=== PATIENT | female | born 1970 | race Caucasian/White ===

== ENCOUNTER 2022-08-28 14:46 | Outpatient (OUT) | payer BC, SELFPAY ==
[2022-08-28 15:15] LABS: Basophils Percent Auto 0.3 % (0.2-2.0); Eosinophils Absolute Auto 0.2 10^3/uL (0.0-0.7); Eosinophils Percent Auto 1.7 % (0.9-7.0); Hematocrit 39.5 % (36.0-48.0); Hemoglobin 13.3 g/dL (12.0-16.0); Immature Granulocytes Abs Auto 0.05 10^3/uL (0.00-0.03); Immature Granulocytes Pct Auto 0.4 % (0.0-0.5); Lymphocytes Absolute Auto 2.8 10^3/uL (1.2-3.8); Lymphocytes Percent Auto 24.3 % (20.5-60.0); Mean Corpuscular HGB Conc 33.7 g/dL (29.9-35.2); Mean Corpuscular Hemoglobin 29.7 pg (26.7-34.0); Mean Corpuscular Volume 88.2 fL (81.0-99.0); Mean Platelet Volume 9.7 fL (9.5-13.5); Monocytes Absolute Auto 0.6 10^3/uL (0.3-0.8); Monocytes Percent Auto 4.9 % (1.7-12.0); Neutrophils Absolute Auto 7.8 10^3/uL (1.4-6.5); Neutrophils Percent Auto 68.4 % (43.0-75.0); Platelet Count 198 10^3/uL (150-450); Red Blood Count 4.48 10^6/uL (4.20-5.40); Red Cell Distribution Width 12.4 % (11.0-15.0); White Blood Count 11.4 10^3/uL (4.0-11.0)
[2022-08-28 15:47] LABS: Estimated Average Glucose 103 mg/dL; Glycohemoglobin A1C 5.2 % (4.5-6.2)
[2022-08-29 14:02] LABS: Anion Gap 13.8; Carbon Dioxide 24.3 mmol/L (21.0-32.0); Chloride 104 mmol/L (98-107); Potassium 4.1 mmol/L (3.5-5.1); Sodium 138 mmol/L (136-145)
[2022-08-29 14:03] LABS: Alanine Aminotransferase 20 U/L (14-59); Albumin Globulin Ratio 1.1; Albumin Level 3.7 g/dL (3.4-5.0); Alkaline Phosphatase 81 U/L (46-116); Aspartate Amino Transferase 10 U/L (15-37); BUN Creatinine Ratio 12.6; Bilirubin Total 0.3 mg/dL (0.2-1.0); Calcium 8.7 mg/dL (8.5-10.1); Chol HDL Ratio 3.7; Cholesterol 181 mg/dL (<=200); Estimated GFR (African America >60 (>=60); Estimated GFR (Non-African Ame >60 (>=60); Globulin 3.4 g/dL; Glucose 89 mg/dL (74-106); HDL Cholesterol 49 mg/dL (40-60); Total Protein 7.1 g/dL (6.4-8.2); Triglycerides 120 mg/dL (<=150)
[2022-08-29 14:04] LABS: Thyroid Stimulating Hormone 1.686 uIU/mL (0.358-3.740)
== END 2022-08-28 14:47 | disposition home or self-care (01) ==
LOC: LAB 14:46
PROVIDERS: PCP Family Medicine; Visit Provider Family Medicine
DX: Z00.00 Encounter for general adult medical examination without abnormal findings (principal)
CPT/HCPCS: 36415; 80053; 80061; 83036; 84443; 85025

== ENCOUNTER 2024-10-10 08:05 | Outpatient (OUT) | payer BC, SELFPAY ==
--- NOTE | 2024-10-10 08:08 | MM_ITS ---
Patient Name: URI DE DIOS MR#: [id number] : 1970 Exam Date: 10/10/2024 Ordering Doctor: DR LAWSON CUEVAS . RADIOLOGY REPORT PROCEDURE: MM TOMOSYNTHESIS SCREENING BI COMPARISON: MG MAMM DIAGNOSTIC 3D PEPPER CAD, 07/07/2021. MG MAMM PEPPER SCRN W CAD DIG, 12/21/2007. INDICATIONS: Screening Calculator Name NCI Breast Cancer Risk Assessment Tool 5 Year Breast Cancer Risk 0.70% Lifetime Breast Cancer Risk 5.80% Personal Breast Cancer No Personal Ovarian Cancer No Treatments None Family Cancers Aunt-paternal with breast cancer at age ~48; Aunt-paternal with breast cancer at age ~48. LOCATION: [facility] BREAST COMPOSITION: The breasts are heterogeneously dense, which may obscure small masses. FINDINGS: DIAGNOSTIC CATEGORY 1--NEGATIVE. RIGHT BREAST: No significant suspicious finding. LEFT BREAST: No significant suspicious finding. RECOMMENDATIONS: ROUTINE MAMMOGRAM AND CLINICAL EVALUATION IN 12 MONTHS. PLEASE NOTE: A NORMAL MAMMOGRAM DOES NOT EXCLUDE THE POSSIBILITY OF BREAST CANCER. A CLINICALLY SUSPICIOUS PALPABLE LUMP SHOULD BE BIOPSIED. Dictated by: Chris Nascimento DO on 10/10/2024 at 12:04 Approved by: Chris Nascimento DO on 10/10/2024 at 12:06
== END 2024-10-10 08:06 | disposition home or self-care (01) ==
LOC: MAMMO 08:05
PROVIDERS: PCP Family Medicine; Visit Provider Family Medicine
DX: Z12.31 Encounter for screening mammogram for malignant neoplasm of breast (principal); Z80.3 Family history of malignant neoplasm of breast
CPT/HCPCS: 77063; 77067

== ENCOUNTER 2024-11-19 20:29 | Outpatient (REF) | payer BC, SELFPAY ==
--- OUTSIDE RECORDS SUMMARY | 2024-11-05 10:45 | XMS_ITS | Encounter Summary ---
[id number] [address] [place] [address] Care Team Providers Care National Coverage Specialist Name Role Phone Jose Alfredo Reyes MD Primary Care Provider [phone] Reason for Visit * Reason Comments Other Breast cyst of Left breast, referred by Dr. Vincent, US done at [facility] 10/23/24 Encounter Details Date Type Department Care Team (Late st Contact Info) Description 11/05/2024 10:45 AM EDT Office Visit [facility] [address] [place], [place] [id number] Francisco J Flores, DO [address] [place] [address] Mass of upper outer quadrant of left breast (Primary Dx); Abnormal ultrasound of breast Social History Tobacco Use Types Packs/Day Years Used Date Smoking Tobacco: Every Day Cigarettes Smokeless Tobacco: Never Tobacco Cessation:Ready to Q uit: Not Asked; Counseling Given: Not Answered Alcohol Use Standard Drinks/Week Comments Yes 0 (1 standard drink = 0.6 oz pur e alcohol) social Childcare Answer Date Recorded Childcare Unknown 08/14/2018 Employment Answer Date Recorded Employment Unknown 08/14/2018 Comments Unknown Sex and Gender Information Value Date Recorded Sex Assigned at Not on file Legal Sex Female 11:37 AM EDT Gender Identity Not on file Sexual Orientation Not on file documented as of this encounter Last Filed Vital Signs Vital Sign Reading Time Taken Comments Blood Pressure 134/87 11/05/2024 10:56 AM EDT Pulse 74 11/05/2024 10:56 AM EDT Temperature - - Respiratory Rate - - Oxygen Saturation - - Inhaled Oxygen Concentration - - Weight 51.7 kg (114 lb) 11/05/2024 10:56 AM EDT Height 162.6 cm (5' 4 ) 11/05/2024 10:56 AM EDT Body Mass Index 19.57 11/05/2024 10:56 AM EDT documented in this encounter Progress Notes * Francisco J Flores, DO - 11/05/2024 10:45 AM EDT Images from the original note were not included. [facility] [address] [facility] [id number] CONSULT NOTE CHIEF COMPLAINT Chief Complaint Patient presents with Other Breast cyst of Left breast, referred by Dr. Vincent, US done at [facility] 10/23/24 Tawnya Calixto is a 54 y.o. female who presents with an abnormal cyst of the left breast. [facility] showing a 1.4 x 1.3 x 1.5 cm cyst with internal debris he is slightly smaller when compared to prior examination has well-circumscribed margins and there is mild posterior acoustic enhancement. It was read as a BI-RADS 3 and they recommended repeat follow up six-month ultrasound of the left breast to assess stability. She has had a palpable mass which is tender for a least 5 months. She stated that the radiologist at [facility] did not want to biopsy this by ultrasound and she wishes to have it removed because it is uncomfortable and painful at times. She was age 19 with the onset of menarche. Last menses was at the time of her hysterectomy many years ago. She is 7 para 3. She was age 21 with her 1st born child. Denies any hormone replacement therapy nipple discharge or any family history of breast cancer. There is precancerous in her mother's side and her great grandmother and on her dad's side had breast cancer. She does perform routine breast self examinations. 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 She had a recent diagnostic mammogram performed at the [employer] on 10/10/2024 which was read as BI-RADS 1 and showed the both breasts were heterogenous really dense which can obscure small masses. Patient is uncomfortable with this and wants to have a biopsy. MEDICATION Current Outpatient Medications: ALPRAZolam (XANAX) 0.5 mg tablet, Take 1 tablet (0.5 mg total) by mouth Three times daily as needed., Disp: , Rfl: omeprazole (PriLOSEC) 40 mg capsule, Take 1 capsule (40 mg total) by mouth., Disp: , Rfl: ondansetron ODT (ZOFRAN ODT) 8 mg disintegrating tablet, Dissolve 1 tablet (8 mg total) on tongue every 8 (eight) hours as needed., Disp: , Rfl: citalopram (CeleXA) 20 mg tablet, Take 1 tablet (20 mg total) by mouth in the morning., Disp: , Rfl: ALLERGY Allergies Allergen Reactions Food Allergy Formula Anaphylaxis Blue Cheese Penicillins Anaphylaxis Morphine Hallucinations Other Reaction(s): depression MEDICAL HISTORY Past Medical History: Diagnosis Date Anxiety Depression SURGICAL HISTORY History reviewed. No pertinent surgical history. SOCIAL HISTORY Social History Socioeconomic History Marital status: Significant Other Spouse name: Not on file Number of children: Not on file Years of education: Not on file Highest education level: Not on file Occupational History Not on file Tobacco Use Smoking status: Every Day Current packs/day: 0.50 Types: Cigarettes Smokeless tobacco: Never Substance and Sexual Activity Alcohol use: Yes Comment: social Drug use: Never Sexual activity: Defer Other Topics Concern Not on file Social History Narrative Not on file Social Drivers of Health Financial Resource Strain: Not on file Food Insecurity: Not on file Transportation Needs: Not on file Physical Activity: Not on file Stress: Not on file Social Connections: Not on file Interpersonal Safety: Not on file Housing Instability: Not on file FAMILY HISTORY History reviewed. No pertinent family history. REVIEW OF SYSTEMS: Constitutional: Denies fevers, denies recent illnesses. Rest review of systems negative except as above. PHYSICAL EXAM Constitutional: She is oriented to person, place, and time. Vital signs are normal. She appears well-developed and well-nourished. HEENT: Head: Normocephalic and atraumatic. Eyes: Conjunctivae, EOM and lids are normal. Neck: Trachea normal. Neck supple. No thyroid mass present. Cardiovascular: Normal rate and regular rhythm. Pulmonary/Chest: Effort normal and breath sounds normal. Breasts: Procurement Technician present; nipples everted bilaterally. No palpable masses in the right breast butrebeca has mild fibrocystic change at the 12 o'clock position freely movable nontender but in the leftbreast in the upper outer quadrant is a freely movable tender mass about 1-2 cm in size quite obvious on examination. She was examined in the sitting and supine positions. Abdominal: Soft. Normal appearance. She exhibits no distension and no mass. There is no hepatosplenomegaly or splenomegaly. There is negative Kolb's sign. No hernia. Musculoskeletal: Normal range of motion. Lymphadenopathy: She has no cervical adenopathy. She has no axillary adenopathy. Neurological: She is alert and oriented to person, place, and time. Skin: Skin is warm, dry and intact. Psychiatric: She has a normal mood and affect. Her speech is normal and behavior is normal. Cognition and memory are normal. IMPRESSION 1. Left breast cyst /palpable mass 2 to 3 o'clock position complex rule out fibroadenoma versus malignancy or other benign etiology ASSESSMENT & PLAN I have offered patient ultrasound-guided biopsy of left breast cyst by Radiology. Since [facility] does not want to perform this we can send her to [facility] to see if they will do this. If not then we would do an open excision but I would rather know whether it is malignant prior to removing it. Evaluation included: Preparing to see the patient (e.g., review of tests) Obtaining and/or reviewing separately obtained history Performing a medically appropriate examination and/or evaluation Counseling and educating the patient/family/caregiver Referring and communicating with other health managed care specialist - Francisco J Flores DO 11/05/24 10:56 AM This note was created with the assistance of a speech recognition program. While intending to generate a timely document that accurately reflects the content of the visit, no guarantee can be provided that every grammatical or spelling mistake has been or will be identified or corrected. Thank you for your understanding. documented in this encounter Plan of Treatment Not on file documented as of this encounter Results * Ultrasound biopsy breast initial left (11/18/2024 9:38 AM EDT) Anatomical Region Laterality Modality Breast Left Ultrasound 11/18/2024 9:59 AM EDT [facility] 11/18/2024 10:03 AM EDT TAWNYA Enriquez LANRE 1970 [id number] EXAM: US BX BREAST US GUID INITIAL LT, 11/18/2024 8:50 AM CLINICAL INDICATIONS: Mass of upper outer quadrant of left breast; Abnormal ultrasound of breast, COMPARISON: [facility] left breast ultrasound from 11/18/2024 and screening mammograms from 10/10/2024 PERFORMING PHYSICIAN: Judah Campa MD PROCEDURE: The risks, benefits, and alternatives of the procedure were explained in detail to the patient and both verbal and written informed consent were obtained. A timeout was performed verifying the correct patient, site and procedure. The patient was placed in a supine position on the US table. Preliminary sonographic evaluation confirmed the presence of the previously described spherical lesion at approximately 3:00. The skin was prepped and draped in usual sterile fashion. Local anesthesia was obtained using 1% lidocaine. Under ultrasound guidance, an 18-gauge needle was placed within the mass and approximately 1.5 mL of thick brown liquid aspirated, with the findings resulting completely. Specimen was sent for cytology. Brief handheld pressure was applied. The estimated blood loss is minimal. The patient tolerated the procedure well. There were no immediate complications. IMPRESSION: 1. Technically successful ultrasound-guided aspiration of a markedly complex left breast cyst, with the findings resulting completely under real-time ultrasound. Cytology is pending. Addendum will be issued when cytology results become available. Finalized by Judah Campa MD on 11/18/2024 10:03 AM Procedure Note Judah Campa MD - 11/18/2024 TAWNYA CALIXTO 1970 [id number] EXAM: US BX BREAST US GUID INITIAL LT, 11/18/2024 8:50 AM CLINICAL INDICATIONS: Mass of upper outer quadrant of left breast;Abnormal ultrasound of breast, COMPARISON: [facility] left breast ultrasound from 11/18/2024 andscreening mammograms from 10/10/2024 PERFORMING PHYSICIAN: Judah Campa MD PROCEDURE: The risks, benefits, and alternatives of the procedure wereexplained in detail to the patient and both verbal and written informedconsent were obtained. A timeout was performed verifying the correctpatient, site and procedure. The patient was placed in a supine position on the US table. Preliminarysonographic evaluation confirmed the presence of the previously describedspherical lesion at approximately 3:00. The skin was prepped and draped in usual sterile fashion. Local anesthesiawas obtained using 1% lidocaine. Under ultrasound guidance, an 18-gaugeneedle was placed within the mass and approximately 1.5 mL of thick brownliquid aspirated, with the findings resulting completely. Specimen wassent for cytology. Brief handheld pressure was applied. The estimated blood lossis minimal. The patient tolerated the procedure well. There were no immediatecomplications. IMPRESSION: 1. Technically successful ultrasound-guided aspiration of a markedlycomplex left breast cyst, with the findings resulting completely underreal-time ultrasound. Cytology is pending. Addendum will be issued whencytology results become available. Finalized by Judah Campa MD on 11/18/2024 10:03 AM us Francisco J Flores DO [facility] US ORDERABLES Final Res ult documented in this encounter Visit Diagnoses Diagnosis Mass of upper outer quadrant of left breast- Primary Abnormal ultrasound of breast Mass of upper outer quadrant of left breast Abnormal ultrasound of breast documented in this encounter Care Teams National Coverage Specialist Relationship Specialty Start Date End Date Jose Alfredo Reyes MD [address] [place] [address] PCP - General Family Medicine 11/04/24 documented as of this encounter
--- OUTSIDE RECORDS SUMMARY | 2024-11-18 08:30 | XMS_ITS | Encounter Summary ---
Author Organization [facility] tem Address [id number] [address] [place] [address] Care Team Providers Care Business Law Professor Name Role Phone Jose Alfredo Reyes MD Primary Care Provider [phone] Encounter Details Date Type Department Care Team (Latest Contact Info) Description 11/18/2024 8:30 AM EDT - 11/18/2024 11:59 PM EDT Hospital Encounter [facility] [address] [place] [phone] Mass of upper outer quadrant of left breast; Abnormal ultrasound of breast Discharge Disposition: Home Social History Tobacco Use Types Packs/Day Years Used Date Smoking Tobacco: Every Day Cigarettes Smokeless Tobacco: Never Alcohol Use Standard Drinks/Week Comments Yes 0 [...] on file documented as of this encounter Medications at Time of Discharge citalopram (CeleXA) 20 mg tablet Take 1 tablet (20 mg total) by mouth in the morning. omeprazole (PriLOSEC) 40 mg capsule Take 1 capsule (40 mg total) by mouth. 04/07/2024 ondansetron ODT (ZOFRAN ODT) 8 mg disintegrating tablet Dissolve 1 tablet (8 mg total) on tongue every 8 (eight) hours as needed. 04/07/2024 documented as of this encounter Plan of Treatment Pending Results Name Type Priority Associated Diagnoses Date /Time Surgical Pathology Pathology and Cytology Routine Mass of upper outer quadrant of left breast Abnormal ultrasound of breast 11/18/2024 9:20 AM EDT Scheduled Orders Name Type Priority Associated Diagnoses Order Schedule Surgical Pathology Pathology and Cytology Routine Mass of upper outer quadrant of left breast Abnormal ultrasound of breast Release Upon Ordering for 1 Occurrences starting 11/18/2024, 1 completed documented as of this encounter Procedures Procedure Name Priority Date/Time Associated Diagnosis Comments US BX BREAST US GUID INITIAL LT Routine 11/18/2024 9:38 AM EDT Mass of upper outer quadrant of left breast Abnormal ultrasound of breast documented in this encounter Results * Ultrasound biopsy breast initial left (11/18/2024 9:38 AM EDT) Anatomical Region Laterality Modality Breast Left Ultrasound 11/18/2024 9:59 AM EDT Narrative 11/18/2024 10:03 AM EDT TAWNYA CALIXTO 1970 [id number] EXAM: US BX BREAST US GUID INITIAL LT, 11/18/2024 8:50 AM CLINICAL INDICATIONS: Mass of upper outer quadrant of left breast; Abnormal ultrasound of breast, COMPARISON: [facility] left breast ultrasound from 11/18/2024 and [...] Campa MD - 11/18/2024 TAWNYA CALIXTO 1970 [id number] EXAM: US BX BREAST US GUID INITIAL LT, 11/18/2024 8:50 AM CLINICAL INDICATIONS: Mass of upper outer quadrant of left breast;Abnormal ultrasound of breast, COMPARISON: [facility] left breast ultrasound from 11/18/2024 andscreening [...] Judah Campa MD on 11/18/2024 10:03 AM Francisco J Flores DO [facility] US ORDERABLES Final Res ult documented in this encounter Visit Diagnoses Diagnosis Mass of upper outer quadrant of left breast Abnormal ultrasound of breast documented in this encounter Administered Medications Inactive Administered Medications - up to 3 most recent administrations Medication Order MAR Action Action Date Dose Rate Site lidocaine PF (XYLOCAINE) 10 mg/mL (1 %) injection 100 mg 100 mg (10 mL), infiltration, Once in imaging, pain, Starting on Sun11/18/24 at 0938, For 1 dose Given 11/18/2024 9:39 AM EDT 100 mg documented in this encounter Care Teams Business Law Professor Relationship Specialty Start Date End Date Jose Alfredo Reyes MD [address] [place] [address] PCP - General Family Medicine 11/04/24 documented as of this encounter
--- OUTSIDE RECORDS SUMMARY | 2024-11-19 15:30 | XMS_ITS | Encounter Summary ---
Author Organization [facility] Address [address] [place] [address] Care Team Providers Care Scratch Brusher Name Role Phone Jose Alfredo Reyes MD Primary Care Provider [phone] Reason for Visit * Reason Comments Well Women Visit Encounter Details Date Type Department Care Team (Latest Contact Info) Description 11/19/2024 3:30 PM EDT Procedure Visit [facility] [address] [place] [phone] Lynn Auguste PA [address] [place], [facility] Well woman exam with routine gynecological exam; Postmenopausal state Social History Tobacco Use Types Packs/Day Years Used Date Smoking Tobacco: Every Day Cigarettes Smokeless Tobacco: Never Alcohol Use Standard Drinks/Week Comments Yes 0 (1 standard drink = 0.6 oz pure alcohol) 1X MO, Caffeine intake: 3-4 cups per day coffee, pop AUDIT-C Answer Date Recorded Q1: How often do you have a drink containing alc ohol? Monthly or less 03/14/2023 Q2: How many drinks containi ng alcohol do you have on a typical day when you are drinking? 1 or 2 03/14/2023 Frequency of Binge Drinking Not on file 03/05 Comments No Sex and Gender Information Value Date Recorded Sex Assigned at Not on file Legal Sex Female 6:41 PM EDT Gender Identity Not on file Sexual Orientation Not on file documented as of this encounter Last Filed Vital Signs Vital Sign Reading Time Taken Comments Blood Pressure 120/70 11/19/2024 3:50 PM EDT Pulse - - Temperature - - Respiratory Rate - - Oxygen Saturation - - Inhaled Oxygen Concentration - - Weight 52.3 kg (115 lb 6.4 oz) 11/19/2024 3:50 P M EDT Height - - Body Mass Index 19.81 10/09/2024 9:24 AM EDT documented in this encounter Progress Notes * LIZA Doty - 11/19/2024 3:30 PM EDT Reason for Appointment: Patient ID: [id number] Calixto is a 54 y.o. female who presents for Well Women Visit Patient presents today for Annual Exam. MEDICATIONS Current Outpatient Medications Medication Instructions ALPRAZolam (XANAX) 0.5 mg, Oral, 3 times daily PRN citalopram (CELEXA) 20 mg, Oral, Daily cyclobenzaprine (FLEXERIL) 10 mg, Oral, 3 times daily PRN dicyclomine (BENTYL) 20 mg, 4 times daily PRN ibuprofen 800 mg, Oral, 3 times daily PRN omeprazole (PRILOSEC) 40 mg, Oral, Daily before breakfast, Do not crush or chew. ondansetron ODT (ZOFRAN-ODT) 8 mg, Oral, Every 8 hours PRN ALLERGIES Allergies Allergen Reactions Morphine Other Reaction(s): depression Nsaids Penicillins Unknown PROBLEMS Active Ambulatory Problems Diagnosis Date Noted Mild intermittent asthma without complication (HCC) 03/03/2024 Irritable bowel syndrome with diarrhea 03/03/2024 Stress reaction 03/03/2024 Acute superficial gastritis without hemorrhage 04/07/2024 Psychophysiological insomnia 05/09/2024 Lump of left breast 10/14/2024 Resolved Ambulatory Problems Diagnosis Date Noted No Resolved Ambulatory Problems Past Medical History: Diagnosis Date Acute asthma (HCC) Anxiety Atypical squamous cells of undetermined significance (ASC-US) on cervical Pap smear BMI 25.0-25.9,adult Breast cancer screening by mammogram Depression Depression Depression screening Encounter for gynecological examination (general) (routine) without abnormal findings Headache History of medical problems 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 Left breast mass Panic attacks HISTORY PAST MEDICAL HISTORY SOCIAL HISTORY Past Medical History: Diagnosis Date Acute asthma (HCC) Anxiety Atypical squamous cells of undetermined significance (ASC-US) on cervical Pap smear BMI 25.0-25.9,adult Breast cancer screening by mammogram Depression Depression Depression screening Encounter for gynecological examination (general) (routine) without abnormal findings Headache History of medical problems 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 Left breast mass Panic attacks Social History Tobacco Use Smoking status: Every Day Types: Cigarettes Smokeless tobacco: Never Substance Use Topics Alcohol use: Yes Comment: 1X MO, Caffeine intake: 3-4 cups per day coffee, pop Drug use: Never FAMILY HISTORY Family History Problem Relation Name Age of Onset Diabetes Mother Hypertension Mother Hyperlipidemia Mother Heart disease Mother Mental illness Mother COPD Mother Diabetes Father SURGICAL HISTORY Past Surgical History: Procedure Laterality Date BI US GUIDED BREAST LOCALIZATION AND BIOPSY LEFT Left 11/18/2024 BI US GUIDED BREAST LOCALIZATION AND BIOPSY LEFT 11/18/2024 KIDNEY SURGERY Left LEFT KIDNEY REMOVED 2018 KNEE SURGERY Right RT KNEE SCOPE/ACL SURGERY X [address] NEVES PARTIAL HYSTERECTOMY 2017 TONSILLECTOMY TUBAL LIGATION 2004 REVIEW OF SYSTEMS Review of Systems: Review of Systems Constitutional: Negative. HENT: Negative. Eyes: Negative. Respiratory: Negative. Cardiovascular: Negative. Gastrointestinal: Negative. Genitourinary: Negative. Musculoskeletal: Negative. Skin: Negative. Neurological: Negative. All other systems reviewed and are negative. Hematological: Negative. Endocrine: Negative. Allergic/Immunologic: Negative. OBJECTIVE Objective: Physical Exam Constitutional: Appearance: Normal appearance. She is well-developed. Genitourinary: Vulva normal. Right Adnexa: not tender and no mass present. Left Adnexa: not tender and no mass present. No cervical discharge. Breasts: Breasts are soft. Right: Normal. Left: Normal. HENT: Head: Normocephalic. Nose: Nose normal. Mouth/Throat: Mouth: Mucous membranes are moist. Cardiovascular: Rate and Rhythm: Normal rate and regular rhythm. Pulmonary: Effort: Pulmonary effort is normal. Breath sounds: Normal breath sounds. Abdominal: General: Bowel sounds are normal. There is no distension. Palpations: Abdomen is soft. Tenderness: There is no abdominal tenderness. There is no guarding or rebound. Musculoskeletal: General: No swelling. Normal range of motion. Cervical back: Normal range of motion. Right lower leg: No edema. Left lower leg: No edema. Neurological: General: No focal deficit present. Mental Status: She is alert and oriented to person, place, and time. Skin: General: Skin is warm and dry. Psychiatric: Mood and Affect: Mood normal. Behavior: Behavior normal. Vitals and nursing note reviewed. Exam conducted with a motion picture equipment machinist present. Vitals: Estimated body mass index is 19.81 kg/m?? as calculated from the following: Height as of 10/09/24: 5' 4 . Weight as of this encounter: 115 lb 6.4 oz. BP: 120/70 No LMP recorded. Patient has had a hysterectomy. ASSESSMENT & PLAN ICD-10-CM 1. Well woman exam with routine gynecological exam Z01.419 THIN PREP TIS PAP AND HR HPV DNA 2. Postmenopausal state Z78.0 DEXA bone density Annual: Patient presents today for an annual exam. Patient states she is doing well and has no complaints. Pap was obtained without difficulty and patient given Dexa scan to have obtained. Patient had left breast bx yesterday, results pending. Orders Placed This Encounter Procedures DEXA bone density Follow Up: Patient is to return in one year for annual unless needed otherwise. Documented by Raysa Miller LPN on behalf of: LIZA Doty documented in this encounter Plan of Treatment Scheduled Orders Name Type Priority Associated Diagnoses Orde r Schedule DEXA bone density Imaging Routine Postmenopausal state Expected: 11/19/2024 (Approximate), Expires: 11/19/2025 THIN PREP TIS PAP AND HR HPV DNA Pathology and Cytology Routine Well woman exam with routine gynecological exam Ordered: 11/19/2024 documented as of this encounter Visit Diagnoses Diagnosis Well woman exam with routine gynecological exam Routine gynecological examination Postmenopausal state Asymptomatic postmenopausal status (age-related) (natural) documented in this encounter Care Teams Scratch Brusher Relationship Specialty Start Date End Date Jose Alfredo Reyes MD PCP - General Family Medicine 03/03/24 documented as of this encounter
--- OUTSIDE RECORDS SUMMARY | 2024-11-19 20:33 | XMS_ITS | Clinical Summary ---
[facility] Address [id number] [address] [place] [address] Care Team Providers Care Continuous Improvement Black Belt Name Role Phone Jose Alfredo Reyes MD Primary Care Provider [phone] Allergies Active Allergy Reactions Criticality Noted Date Comments Food Allergy Formula Anaphylaxis High 11/05/2024 Blue Cheese Morphine Hallucinations 11/27/2016 Other Reaction(s): depression Penicillins Anaphylaxis High 07/28/2020 Medications citalopram (CeleXA) 20 mg tablet Take 1 tablet (20 mg total) by mouth in the morning. Active omeprazole (PriLOSEC) 40 mg capsule Take 1 capsule (40 mg total) by mouth. 5 Active ondansetron ODT (ZOFRAN ODT) 8 mg disintegrating tablet Dissolve 1 tablet (8 mg total) on tongue every 8 (eight) hours as needed. 5 Active ALPRAZolam (XANAX) 0.5 mg tablet Take 1 tablet (0.5 mg total) by mouth Three times daily as needed. 11/19/19 25 Active Problems No known active problems Encounters Date Type Department Care Team Description 11/18/2024 8:30 AM EDT - 11/18/2024 11:59 PM EDT Hospital Encounter [facility] [address] [place] [phone] Mass of upper outer quadrant of left breast; Abnormal ultrasound of breast Discharge Disposition: Home 11/18/2024 Travel 11/10/2024 Travel 11/07/2024 Orders Only [facility] [address] [place] [phone] Transcribe, Orders Support User Pain (Primary Dx) 11/05/2024 10:45 AM EDT Office Visit [facility] [address] [place] [phone] Francisco J Flores DO Mass of upper outer quadrant of left breast (Primary Dx); Abnormal ultrasound of breast 11/05/2024 Travel 11/04/2024 Telephone [facility] [address] [place] [address] Ninoska Flores CMA 10/23/2024 9:15 AM EDT Ancillary Procedure [facility] [address] [place] [phone] Pain 10/10/2024 8:15 AM EDT Ancillary Procedure [facility] [address] [place] [phone] Pain from Last 3 Months Family History Medical History Relation Name Comments Diabetes Father Heart failure Father Hypertension Father Kidney disease Father COPD Mother Diabetes Mother Hypertension Mother Relation Name Status Comments Brother Alive Daughter Alive Father Alive Mother Alive Son Alive Social History Tobacco Use Types Packs/Day Years [...] on file Sexual Orientation Not on file Last Filed Vital Signs Vital Sign Reading Time Taken Comments Blood Pressure 134/87 11/05/2024 10:56 AM EDT Pulse 74 11/05/2024 10:56 AM EDT Temperature 36.4 C (97.5 F) 09/30/2020 9:12 AM EDT Respiratory Rate - - Oxygen Saturation - - Inhaled Oxygen Concentration - - Weight 51.7 kg (114 lb) 11/05/2024 10:56 AM EDT Height 162.6 cm (5' 4 ) 11/05/2024 10:56 AM EDT Body Mass Index 19.57 11/05/2024 10:56 AM EDT Plan of Treatment Health Maintenance Due Date Last Done Comments Tobacco Counseling 1972 Depression Screening 1984 DTaP,Tdap and Td Vaccines (1 - Tdap) 08/17/1991 Zoster (Shingles) Vaccine (1 of 2) 2022 Pap Smear 02/03/2024 02/02/2021 Influenza Vaccine 11/03/2024 Colonoscopy 09/22/2025 09/22/2020, 09/03, 09/22/2020 Adult BMI Screening 11/05/2025 11/05/2024 Tobacco Screening 11/05/2025 11/05/2024 Medical Devices Not on file Procedures Procedure Name Priority Date/Time Associated Diagnosis Comments US BX BREAST US GUID INITIAL LT Routine 11/18/2024 9:38 AM EDT Mass of upper outer quadrant of left breast Abnormal ultrasound of breast US BREAST LT LIMITED Routine 10/23/2024 9:15 AM EDT Pain MAMM SCREENING BILATERAL W CAD Routine 10/10/2024 8:15 AM EDT Pain COLONOSCOPY Routine 09/22/[address] scan, gastrointestinal tract Colitis Left upper quadrant abdominal pain from Last 3 Months or Most Recently Relevant to Health Maintenance Results * Ultrasound biopsy breast initial left (11/18/2024 9:38 AM EDT) Anatomical Region Laterality Modality Breast Left Ultrasound 11/18/2024 9:59 AM EDT Narrative 11/18/2024 10:03 AM EDT TAWNYA CALIXTO 1970 [id number] EXAM: US BX BREAST US GUID INITIAL LT, 11/18/2024 8:50 AM CLINICAL INDICATIONS: Mass of upper outer quadrant of left breast; Abnormal ultrasound of breast, COMPARISON: [facility] left breast ultrasound from 11/18/2024 and [...] Campa MD - 11/18/2024 TAWNYA CALIXTO 1970 [id number] EXAM: US BX BREAST US GUID INITIAL LT, 11/18/2024 8:50 AM CLINICAL INDICATIONS: Mass of upper outer quadrant of left breast;Abnormal ultrasound of breast, COMPARISON: [facility] left breast ultrasound from 11/18/2024 andscreening [...] 10:03 AM us Francisco J Flores DO IMG US ORDERABLES Final Res ult * Ultrasound breast limited left (10/23/2024 9:15 AM EDT) us Scanning Provider External IMG US ORDERABLES Fin al Result * Mammography screening bilateral with CAD (10/10/2024 8:15 AM EDT) us Scanning Provider External IMG MAMMOGRAPHY ORDER ABDIAZIZ Final Result Performing Organization Address [facility] de Phone Number MANUALLY TRANSCRIBED RESULTS * Colonoscopy (09/22/2020) us Francisco J Flores DO GI PROCEDURE ORDERABLES Fin al Result Performing Organization Address [facility] de Phone Number MANUALLY TRANSCRIBED RESULTS from Last 3 Months or Most Recently Relevant to Health Maintenance Insurance ANTH Care Teams Continuous Improvement Black Belt Relationship Specialty Start Date End Date Jose Alfredo Reyes MD [address] [place] [phone] PCP - General Family Medicine 11/04/24
--- OUTSIDE RECORDS SUMMARY | 2024-11-19 20:33 | XMS_ITS | Encounter Summary ---
Author Organization [facility] tem Address [id number] [address] [place] [address] Care Team Providers Care Electrifier Operator Name Role Phone Jose Alfredo Reyes MD Primary Care Provider [phone] Encounter Details Date Type Department Care Team (Latest Contact Info) Description 11/05/2024 Travel Social History Tobacco Use Types Packs/Day Years [...] on file documented as of this encounter Plan of Treatment Not on file documented as of this encounter Visit Diagnoses Not on filedocumented in this encounter Care Teams Electrifier Operator Relationship Specialty Start Date End Date Jose Alfredo Reyes MD [address] [place] [address] PCP - General Family Medicine 11/04/24 documented as of this encounter
--- OUTSIDE RECORDS SUMMARY | 2024-11-19 20:33 | XMS_ITS | Encounter Summary ---
Author Organization [facility] Address [address] [place] [address] Care Team Providers Care Interactive Media Marketing Director Name Role Phone Jose Alfredo Reyes MD Primary Care Provider [phone] Encounter Details Date Type Department Care Team (Late st Contact Info) Description 11/19/2024 Bamboo flowsheet [facility] [address] [place] [address] Lynn Auguste PA [address] [place], [facility] Social History Tobacco Use Types Packs/Day Years [...] on filedocumented in this encounter Care Teams Interactive Media Marketing Director Relationship Specialty Start Date End Date Jose Alfredo Reyes MD PCP - General Family Medicine 03/03/24 documented as of this encounter
--- OUTSIDE RECORDS SUMMARY | 2024-11-19 20:33 | XMS_ITS | Clinical Summary ---
Author Organization [facility] Healthcare Address [address] [place] [address] Care Team Providers Care Director Of Business Development Name Role Phone Lawson Cuevas MD Primary Care Provider [phone] Allergies Active Allergy Reactions Criticality Noted Date Comments Morphine 03/06/2023 Other Reaction(s): depression Nsaids 04/25/2023 Penicillins Unknown 03/06/2023 Medications dicyclomine (Bentyl) 20 MG tablet Take 20 mg by mouth 4 (four) times a day as needed (spasms) 3 Active cyclobenzaprine (Flexeril) 10 MG tabletIndications:L umbar strain, initial encounter Take 1 tablet (10 mg) by mouth 3 (three) times a day as needed for muscle spasms 60 tablet 2 4 Active ibuprofen 800 MG tabletIndications:L umbar strain, initial encounter Take 1 tablet (800 mg) by mouth 3 (three) times a day as needed for mild pain or moderate pain 90 tablet 2 4 Active ondansetron ODT (Zofran-ODT) 8 MG disintegrating tabletIndications:A cute superficial gastritis without hemorrhage Take 1 tablet (8 mg) by mouth every 8 (eight) hours if needed for vomiting or nausea 60 tablet 2 5 Active omeprazole (PriLOSEC) [address] capsuleIndications: Acute superficial gastritis without hemorrhage Take 1 capsule (40 mg) by mouth in the morning. Take before meals. Do not crush or chew.. 30 capsule 3 5 Active citalopram (CeleXA) 20 MG tabletIndications:S tress reaction Take 1 tablet (20 mg) by mouth Daily 90 tablet 3 5 Active ALPRAZolam (Xanax) 0.5 MG tabletIndications:S tress reaction Take 1 tablet (0.5 mg) by mouth 3 (three) times a day as needed for anxiety 60 tablet 1 5 Active Active Problems Problem Noted Date Diagnosed Date Lump of left breast 10/14/2024 Psychophysiological insomnia 05/09/2024 Assessment & Plan (10/09/2024 9:58 AM EDT): Sleeping well with xanax and continue. Assessment & Plan (07/18/2024 10:25 AM EDT): Sleeping well with xanax and continue. Assessment & Plan (05/09/2024 10:08 AM EST): Not sleeping well and try trazodone. Acute superficial gastritis without hemorrhage 0 04/07/2024 Assessment & Plan (05/09/2024 10:08 AM EST): Symptoms improved with omeprazole and continue. Assessment & Plan (04/07/2024 8:39 AM EST): Severe symptoms and start omeprazole. Mild intermittent asthma without complication Irritable bowel syndrome with diarrhea Stress reaction 03/03/2024 Assessment & Plan (10/09/2024 9:58 AM EDT): Symptoms improving and continue celexa. Use xanax PRN. Assessment & Plan (07/18/2024 10:25 AM EDT): Symptoms slowly improving and continue celexa. Use xanax PRN. Assessment & Plan (05/09/2024 10:09 AM EST): Mood slightly improved and continue celexa at current dose. Assessment & Plan (04/07/2024 8:38 AM EST): Symptoms unchanged and side effects with zoloft. Start celexa and warned will take 2-3 weeks to notice improvement in mood. Use xanax PRN. Assessment & Plan (03/03/2024 10:05 AM EST): Severe symptoms and not functioning well. Start zoloft and warned will take 2-3 weeks to notice improvement in mood. Start xanax PRN. Encounters Date Type Department Care Team Description 11/19/2024 3:30 PM EDT Procedure [facility] [place] [phone] Lynn Auguste PA Well woman exam with routine gynecological exam; Postmenopausal state 11/19/2024 Bamboo flowsheet [facility] [address] [facility] [place] [address] Lynn Auguste PA 10/23/2024 Telephone [facility] [place] [address] Shanita Feliciano MA 10/23/2024 External Result Encounter [facility] External Department Unsolicited Lynn Auguste PA 10/14/2024 Telephone [facility] [address] [facility] [place] [address] Hamida Glaser LPN 10/14/2024 Telephone [facility] [address] [place] [address] Lawson Cuevas MD 10/13/2024 Results Follow-Up [facility] [address] [place] [address] Lawson Cuevas MD MM TOMOSYNTHESIS SCREENING BI 10/10/2024 Clinisync Result Encounter [facility] External Department Unsolicited Lawson Cuevas MD 10/09/2024 9:15 AM EDT Office Visit [facility] [address] [place] [phone] Lawson Cuevas MD Stress reaction (Primary Dx); Psychophysiological insomnia 10/09/2024 Bamboo flowsheet [facility] [address] [place] [phone] Lawson Cuevas MD 09/11/2024 [facility]phone [facility] [address] [place] [phone] Lawson Cuevas MD 08/25/2024 Refill [facility] [address] [place] [address] Lawson Cuevas MD Stress reaction from Last 3 Months Family History Medical History Relation Name Comments Diabetes Father COPD Mother Diabetes Mother Heart disease Mother Hyperlipidemia Mother Hypertension Mother Mental illness Mother Relation Name Status Comments Daughter Alive 2 Father Alive Mother Alive Son Alive Social [...] Pressure 120/70 11/19/2024 3:50 PM EDT Pulse 79 10/09/2024 9:24 AM EDT Temperature 36.4 C (97.5 F) 10/09/2024 9:24 AM EDT Respiratory Rate 22 10/09/2024 9:24 AM EDT Oxygen Saturation 99% 10/09/2024 9:24 AM EDT Inhaled Oxygen Concentration - - Weight 52.3 kg (115 lb 6.4 oz) 11/19/2024 3:50 P M EDT Height 162.6 cm (5' 4 ) 10/09/2024 9:24 AM EDT Body Mass Index 19.81 10/09/2024 9:24 AM EDT Plan of Treatment Health Maintenance Due Date Last Done Comments CT Colonography 1972 FIT-DNA 1972 FIT 1972 FOBT 1970 Sigmoidoscopy 1970 Influenza Vaccine (#1) 2024 2, 12/03/2017, 12/03/2016, Additional history exists Mammogram 10/10/2025 10/10/2024, 05/0 07/2021, 01/16/2019, Additional history exists Colonoscopy 09/22/2030 09/22/2020 Colorectal Cancer Screening 09/22/2030 Cervical Cancer Screening Discontinued Pap Smear Discontinued 02/02/2021 HPV/Cotest Discontinued Procedures Procedure Name Priority Date/Time Associated Diagnosis Comments BI US BREAST LIMITED LEFT 10/23/2024 9:31 AM EDT MM TOMOSYNTHESIS SCREENING BI 10/10/2024 12:06 PM EDT PAP SMEAR Routine 02/02/2021 12:00 AM EST COLONOSCOPY Routine 09/22/2020 12:00 PM EDT from Last 3 Months or Most Recently Relevant to Health Maintenance Results * Left breast US limited (10/23/2024 9:31 AM EDT) Anatomical Region Laterality Modality Breast Left Ultrasound 10/23/2024 9:31 AM EDT Impressions 10/23/2024 10:04 AM EDT There is redemonstration of a mildly complex cyst in the left breast at the 2 to 3:00 position 3 cm from the nipple. This is more complex when compared to the prior exam. Follow-up with six-month ultrasound of the left breast is recommended to assess for stability. ASSESSMENT: BIRADS-3 Probably Benign RECOMMENDATION: Follow-up with six-month ultrasound of the left breast is recommended to assess for stability. Impression dictated by: Wei Luis M.D. 10/23/2024 10:02 AM Dictation Location: [facility] Tech: Audrey Balbuena Transcribed By: PWS 10/23/24 1002 Dictated By: Wei Luis II, MD 10/23/24 0931 Signed By: <Electronically signed by Wei Luis II, MD in OV> 10/23/24 1002 Narrative 10/23/2024 10:04 AM EDT [place] [facility] [place] [id number] Ultrasound Report Signed Patient: Tawnya De Dios MR#: [id number] : 1970 Acct:[id number] Age/Sex: 54 / F ADM Date: 10/23/24 Loc: [place] Room: Type: REG CLI Attending Dr: Lynn Auguste PA-C Ordering Provider: Lynn VALDEZ Date of Service: 10/23/24 US/US breast LT limited: N63.20 Copies to: Lynn VALDEZ US breast LT limited 10/23/2024 9:46 AM SIGNS AND SYMPTOMS: Palpable lump in left breast COMPARISON: 10/10/2024 and 07/07/2021 FINDINGS: In the left breast at the 2 to 3:00 position 3 cm from the nipple there is redemonstration of a 1.4 x 1.3 x 1.5 cm cyst with internal debris. This is slightly smaller when compared to the prior exam. This has well-circumscribed margins. There is mild posterior acoustic enhancement. US/US breast LT limited Procedure Note Wei Luis MD - 10/23/2024 [place] [id number] Ultrasound Report Signed Patient: Tawnya De Dios CMR#: [id number] : 1970Acct:[id number] Age/Sex: 54 / FADM Date: 10/23/24 Loc: [place] Room:Type: REG CLI Attending Dr: Lynn Auguste PA-C Ordering Provider: Lynn VALDEZ Date of Service: 10/23/24 US/US breast LT limited: N63.20 Copies to: Lynn VALDEZ US breast LT limited 10/23/2024 9:46 AM SIGNS AND SYMPTOMS: Palpable lump in left breast COMPARISON: 10/10/2024 and 07/07/2021 FINDINGS: In the left breast at the 2 to 3:00 position 3 cm from the nipple there isredemonstration of a 1.4 x 1.3 x 1.5 cm cyst with internal debris. This is slightly smaller whencompared to the prior exam. This has well-circumscribed margins. There is mild posterior acousticenhancement. US/US breast LT limited IMPRESSION: There is redemonstration of a mildly complex cyst in the left breast atthe 2 to 3:00 position 3 cm from the nipple. This is more complex when compared to the prior exam.Follow-up with six-month ultrasound of the left breast is recommended to assess for stability. ASSESSMENT: BIRADS-3 Probably Benign RECOMMENDATION: Follow-up with six-month ultrasound of the left breast isrecommended to assess for stability. Impression dictated by: Wei Luis M.D. 10/23/2024 10:02 AM Dictation Location: [facility] Tech: Audrey Balbuena Transcribed By: [facility] 10/23/24 1002 Dictated By: Wei Luis II, MD 10/23/24 0931 Signed By: <Electronically signed by Wei Luis II, MD inOV> 10/23/24 1002 us Lynn LAGUERRE US PROCEDURES Final Result * MM TOMOSYNTHESIS SCREENING BI (10/10/2024 12:06 PM EDT) Anatomical Region Laterality Modality Other 10/10/2024 12:0 6 PM EDT Narrative 10/10/2024 12:07 [place] [address] Mammography Report Signed Patient: TAWNYA DE DIOS MR#: [id number] : 1970 Acct:[id number] Age/Sex: 54 / F ADM Date: 10/10/24 Loc: MAMMO Attending Dr: Lawson Cuevas M.D. Ordering Physician: Lawson Cuevas M.D. Results: Date of Service: 10/10/24 Follow Up: Procedure(s): MM tomosynthesis screening BI Accession Number(s): [id number] cc: Lawson Cuevas M.D. Patient Name: TAWNYA DE DIOS MR#: [id number] : 1970 Exam Date: 10/10/2024 Ordering Doctor: DR LAWSON CUEVAS . RADIOLOGY REPORT PROCEDURE: MM TOMOSYNTHESIS SCREENING BI COMPARISON: MG [facility] DIAGNOSTIC 3D PEPPER CAD, 07/07/2021. MG MAMM PEPPER SCRN W CAD DIG, 12/21/2007. INDICATIONS: Screening Calculator Name NCI Breast Cancer Risk Assessment Tool 5 Year Breast Cancer Risk 0.70% Lifetime Breast Cancer Risk 5.80% Personal Breast Cancer No Personal Ovarian Cancer No Treatments None Family Cancers Aunt-paternal with breast cancer at age 48; Aunt-paternal with breast cancer at age 48. LOCATION: [facility] BREAST COMPOSITION: The breasts are heterogeneously dense, which may obscure small masses. FINDINGS: DIAGNOSTIC CATEGORY 1--NEGATIVE. RIGHT BREAST: No significant suspicious finding. LEFT BREAST: No significant suspicious finding. RECOMMENDATIONS: ROUTINE MAMMOGRAM AND CLINICAL EVALUATION IN 12 MONTHS. PLEASE NOTE: A NORMAL MAMMOGRAM DOES NOT EXCLUDE THE POSSIBILITY OF BREAST CANCER. A CLINICALLY SUSPICIOUS PALPABLE LUMP SHOULD BE BIOPSIED. Dictated by: Chris Nascimento DO on 10/10/2024 at 12:04 Approved by: Chris Nascimento DO on 10/10/2024 at 12:06 Dictated By: Chris Nascimento M.D. Signed By: 10/10/24 1207 DD/ 1206 TD/TT: Soft Drink Powder Mixer: Procedure Note Radiology, Radiologist, MD - 10/10/2024 [place] [address] Mammography Report Signed Patient: TAWNYA DE DIOS CMR#: [id number] : 1970Acct:[id number] Age/Sex: 54 / FADM Date: 10/10/24 Loc: MAMMO Attending Dr: Lawson Cuevas M.D. Ordering Physician: Lawson Cuevas M.D.Results: Date of Service: 10/10/24Follow Up: Procedure(s): MM tomosynthesis screening BI Accession Number(s): [id number] cc: Lawson Cuevas M.D. Patient Name: TAWNYA DE DIOS MR#: [id number] : 1970 Exam Date: 10/10/2024 Ordering Doctor: DR LAWSON CUEVAS . RADIOLOGY REPORT PROCEDURE: MM TOMOSYNTHESIS SCREENING BI COMPARISON: MG MAMM DIAGNOSTIC 3D PEPPER CAD, 07/07/2021. MG MAMM BILSCRN W CAD DIG, 12/21/2007. INDICATIONS: Screening Calculator Name NCI Breast Cancer Risk Assessment Tool 5 Year Breast Cancer Risk 0.70% Lifetime Breast Cancer Risk 5.80% Personal Breast Cancer No Personal Ovarian Cancer No Treatments None Family Cancers Aunt-paternal with breast cancer at age 48; Aunt-paternal with breast cancer at age 48. LOCATION: [facility] BREAST COMPOSITION: The breasts are heterogeneously dense, which may obscure small masses. FINDINGS: DIAGNOSTIC CATEGORY 1--NEGATIVE. RIGHT BREAST: No significant suspicious finding. LEFT BREAST: No significant suspicious finding. RECOMMENDATIONS: ROUTINE MAMMOGRAM AND CLINICAL EVALUATION IN 12 MONTHS. PLEASE NOTE: A NORMAL MAMMOGRAM DOES NOT EXCLUDE THE POSSIBILITY OFBREAST CANCER. A CLINICALLY SUSPICIOUS PALPABLE LUMP SHOULD BE BIOPSIED. Dictated by: Chris Nascimento DO on 10/10/2024 at 12:04 Approved by: Chris Nascimento DO on 10/10/2024 at 12:06 Dictated By: Chris Nascimento M.D. Signed By:10/10/24 1207 DD/ 1206 TD/TT: Soft Drink Powder Mixer: us Lawson Cuveas MD [facility] Final Result * Pap Smear (02/02/2021 12:00 AM EST) Swab Cervical swab / Unknown us Zeenat Crook MD LAB CYTOLOGY ORDERABLES Final Result EXTERNAL LAB * Colonoscopy (09/22/2020 12:00 PM EDT) Anatomical Region Laterality Modality Endoscopy 09/22/2020 12:0 0 PM EDT Narrative 09/22/2020 12:00 PM EDT PERFORMED AT [facility] LOCATION:[id number] Procedure Note CONVERSION, GENERIC - 07/19/2022 PERFORMED AT [facility] LOCATION:[id number] us Zeenat Crook MD ENDOSCOPY PROCEDURE ORDERABLE S Final Result from Last 3 Months or Most Recently Relevant to Health Maintenance Insurance [employer] Care Teams Director Of Business Development Relationship Specialty Start Date End Date Lawson Cuevas MD PCP - General Family Medicine 03/03/24
--- OUTSIDE RECORDS SUMMARY | 2024-11-19 20:33 | XMS_ITS | Encounter Summary ---
Author Organization [employer] [facility] Address [id number] [address] [place] [address] Care Team Providers Care Parole Director Name Role Phone Jose Alfredo Reyes MD Primary Care Provider [phone] Encounter Details Date Type Department Care Team (Late st Contact Info) Description 11/07/2024 Orders Only [facility] [employer] [address] [place] [phone] Transcribe, Orders Support User Pain (Primary Dx) Social History Tobacco Use Types Packs/Day Years [...] as of this encounter Results * Ultrasound breast limited left (10/23/2024 9:15 AM EDT) us Scanning Provider External IMG US ORDERABLES Fin al Result * Mammography screening bilateral with CAD (10/10/2024 8:15 AM EDT) us Scanning Provider External IMG MAMMOGRAPHY ORDER ABDIAZIZ Final Result MANUALLY TRANSCRIBED RESULTS documented in this encounter Visit Diagnoses Diagnosis Pain- Primary Generalized pain documented in this encounter Care Teams Parole Director Relationship Specialty Start Date End Date Jose Alfredo Reyes MD [address] [place] [address] PCP - General Family Medicine 11/04/24 documented as of this encounter
--- OUTSIDE RECORDS SUMMARY | 2024-11-19 20:33 | XMS_ITS | Encounter Summary ---
Author Organization [facility] Address [address] [place] [address] Care Team Providers Care Mechanical Pencils Assembler Name Role Phone Jose Alfredo Reyes MD Primary Care Provider [phone] Encounter Details Date Type Department Care Team (Late st Contact Info) Description 10/23/2024 External Result Encounter [facility] External Department Unsolicited Lynn Auguste, LIZA [address] [place] [address] [place] [address] Social History Tobacco Use Types Packs/Day Years [...] on file documented as of this encounter Procedures Procedure Name Priority Date/Time Associated Diagnosis Comments BI US BREAST LIMITED LEFT 10/23/2024 9:31 AM EDT documented in this encounter Results * Left breast US limited (10/23/2024 [...] Luis M.D. 10/23/2024 10:02 AM Dictation Location: [facility] Tech: Audrey Balbuena Transcribed By: LAISHA 10/23/24 1002 Dictated By: Wei Luis II, MD 10/23/24 0931 Signed By: <Electronically signed by Wei Luis II, MD in OV> 10/23/24 1002 Narrative 10/23/2024 10:04 AM EDT [facility] Main [place] [address] [place] [address] Ultrasound Report Signed Patient: Tawnya Calixto MR#: [id number] : 1970 Acct:[id number] Age/Sex: 54 / F ADM Date: 10/23/24 Loc: [place] Room: Type: [facility] Attending Dr: Lynn Auguste PA-C Ordering Provider: [...] Procedure Note Wei Luis MD - 10/23/2024 [facility] [place] [address] [place], [place] [id number] Ultrasound Report Signed Patient: Tawnya Calixto CMR#: [id number] : 1970Acct:[id number] Age/Sex: 54 / FADM Date: 10/23/24 Loc: [place] Room:Type: [facility] Attending Dr: Lynn Auguste PA-C Ordering Provider: [...] Luis M.D. 10/23/2024 10:02 AM Dictation Location: [facility] Tech: Audrey Balbuena Transcribed By: LAISHA 10/23/24 1002 Dictated By: Wei Luis II, MD 10/23/24 0931 Signed By: <Electronically signed by Wei Luis II, MD inOV> 10/23/24 1002 us Lynn DE JES[facility] US PROCEDURES Final Result documented in this encounter Visit Diagnoses Not on filedocumented in this encounter Care Teams Mechanical Pencils Assembler Relationship Specialty Start Date End Date Jose Alfredo Reyes MD PCP - General Family Medicine 03/03/24 documented as of this encounter
--- OUTSIDE RECORDS SUMMARY | 2024-11-19 20:33 | XMS_ITS | Encounter Summary ---
Author Organization [employer] [facility] tem Address [id number] [address] [place] [address] Care Team Providers Care Line Service Supervisor Name Role Phone Jose Alfredo Reyes MD Primary Care Provider [phone] Encounter Details Date Type Department Care Team (Latest Contact Info) Description 11/10/2024 Travel Social History Tobacco Use Types Packs/Day [...] on filedocumented in this encounter Care Teams Line Service Supervisor Relationship Specialty Start Date End Date Jose Alfredo Reyes MD [address] [place] [address] PCP - General Family Medicine 11/04/24 documented as of this encounter
--- OUTSIDE RECORDS SUMMARY | 2024-11-19 20:33 | XMS_ITS | Encounter Summary ---
[id number] [address] [place] [address] Care Team Providers Care Sales Correspondent Name Role Phone Jose Alfredo Reyes MD Primary Care Provider [phone] Encounter Details Date Type Department Care Team (Late st Contact Info) Description 08/09/[address] [facility] General Surgery [address] [place] [phone] Elina Rolle RMA Social History Tobacco Use Types Packs/Day Years [...] on file Sexual Orientation Not on file COVID-19 Exposure Response Date Recorded In the last month, have you been in contact with someone who was confirmed or suspected to have Coronavirus / COVID-19? No / Unsure 07/28/2020 2:14 PM EDT documented as of this encounter Miscellaneous Notes * Telephone Encounter - VICTORIANO Espinoza - 08/09/2020 10:36 AM EDT Tawnya called to cancel her surgery at [facility] on 09/07/2020. She wants it at the [facility] now. So I called [facility] to cancel then cancelled the post op appt., as well. She is going to come into the office to sign all the [facility] papers then I will call [facility] to schedule the surgery then also her post op hernia appointment. documented in this encounter Plan of Treatment Not on file documented as of this encounter Visit Diagnoses Not on filedocumented in this encounter Care Teams Sales Correspondent Relationship Specialty Start Date End Date Jose Alfredo Reyes MD [address] [place] [address] PCP - General Family Medicine 11/04/24 documented as of this encounter
--- OUTSIDE RECORDS SUMMARY | 2024-11-19 20:33 | XMS_ITS | Encounter Summary ---
Author Organization [employer] [facility] tem Address [id number] [address] [place] [address] Care Team Providers Care Surgeon/President Name Role Phone Jose Alfredo Reyes MD Primary Care Provider [phone] Encounter Details Date Type Department Care Team (Latest Contact Info) Description 11/18/2024 Travel Social History Tobacco Use Types Packs/Day [...] on filedocumented in this encounter Care Teams Surgeon/President Relationship Specialty Start Date End Date Jose Alfredo Reyes MD [address] [place] [address] PCP - General Family Medicine 11/04/24 documented as of this encounter
[2024-11-26 15:08] LABS: Age Gdln ACOG Testing Note (.); IGP, Aptima HPV, rfx 16/18,45 Note (.)
== END 2024-11-19 20:30 | disposition home or self-care (01) ==
LOC: LAB 20:29
PROVIDERS: PCP Family Medicine; Visit Provider Physician Assistant
DX: Z01.419 Encounter for gynecological examination (general) (routine) without abnormal findings (principal)
CPT/HCPCS: 87624; 88175